=== PATIENT | female | born 1940 | race Caucasian/White ===

== ENCOUNTER → 2020-05-20 | Outpatient (CLI) | payer MEDICARE ==
[~2020-05-20] MED LIST: ALDACTONE50 MG PO; IMURAN 50MG TAB50 MG PO; K-DUR 10 MEQ T10 MEQ PO; LASIX 20MG TABL20 MG PO; MULTIPLE VITAMI1 TA5 PO; PRIL40 PO; SYNTHROID0.125 MG/T PO; VALTREX1 GM PO; VITAMIN B COMPL1 SGL PO; VITAMIN C500 MG PO; ZOFRAN 4MG T4 MG/TAB PO
== END ==
LOC: COL.RAD 10:12
DX: K74.60 Unspecified cirrhosis of liver (principal); K75.4 Autoimmune hepatitis; R74.8 Abnormal levels of other serum enzymes; Z90.49 Acquired absence of other specified parts of digestive tract

== ENCOUNTER 2023-09-30 05:50 | Day surgery (SDC) | payer MEDICARE ==
[~2023-09-30] VITALS: Ht 165.1 cm; Wt 69.1 kg
[~2023-09-30 05:50] MED LIST changes: +LR 1,000 ML IV SCH; +Ondansetron 4 MG/2 ML VIAL IV PRN; +SYNTHROID0.088 MG/T PO; -SYNTHROID0.125 MG/T PO
[2023-09-30 07:07] VITALS: BP 123/92; PULSE 71; TEMP 96.8
[2023-09-30] MEDS ORDERED: TYLENOL 500MG500 MG PO (07:15)
[2023-09-30] MEDS ORDERED: PREDNISONE 5MG5 MG PO (07:20)
[2023-09-30] MEDS ORDERED: MIRALAX PA17 GM/Dose PO (07:21)
[2023-09-30] MEDS ORDERED: MOTRIN 400400 MG/TAB PO (07:22)
[2023-09-30] MEDS ORDERED: Lidocaine PF 2% (20 MG/ML) 5 ML VIAL ONE (07:51)
[2023-09-30 08:15] VITALS: BP 125/83; PULSE 64
[2023-09-30 08:30] VITALS: BP 119/99; PULSE 64
--- NOTE | 2023-09-30 08:47 | NUR ---
PT ARRIVED TO ROOM @ 0815; FAMILY BROUGHT IN FROM WAITING ROOM. PT TOLERATED ORANGE JUICE AND A MUFFIN WELL W/O ANY DIFFICULTY. DOCTOR URVASHI WENT IN TO REVIEW CASE WITH PT AND FAMLY @ 0830. IV TO THE LEFT HAND WAS REMOVED @ 0836 AND DRESSING PUT IN PLACE. CATHETER WAS INTACT AND NO S/S OF PHLEBITIS OR INFILTRATION. PT INSTRUCTIONS GONE OVER WITH THE PATIENT @ 0840, PT HAD NO QUESTIONS. PT D/C'D HOME WITH DAUGHTER @ 0816
== END 2023-09-30 08:45 | disposition home or self-care (01) ==
LOC: SDCO 05:50
DX: K21.9 Gastro-esophageal reflux disease without esophagitis (principal); K22.70 Barrett's esophagus without dysplasia; K44.9 Diaphragmatic hernia without obstruction or gangrene; I85.10 Secondary esophageal varices without bleeding
CPT/HCPCS: J2704; J7120